=== PATIENT | female | born 1940 | race Caucasian/White ===

== ENCOUNTER → 2017-12-15 | Outpatient (CLI) | payer MEDICARE ==
[~2017-12-15] MED LIST: ASPI81TA40 PO; ATOR40TA71 PO; CARV12.511 PO; GLIP10TA9 PO; LOSA50TA37 PO; METF10004 PO; MONT10TA24 PO; OMEPRAZOLE PO; OXYB5TAB10 PO; RIVA20TA PO
== END | disposition home or self-care (01) ==
LOC: OIH 16:29
PROVIDERS: ATTEND Internal Medicine
DX: M25.552 Pain in left hip (principal)
CPT/HCPCS: 73502

== ENCOUNTER 2018-01-23 08:23 | Day surgery (SDC) | payer MEDICARE ==
[2018-01-21 13:57] VITALS: BP 118/57
[2018-01-21 14:06] LABS: BASOPHILS % (AUTO) 0.6 % (0.0-5.0); HEMATOCRIT 36.7 % (36-48); LYMPHOCYTES % (AUTO) 38.2 % (21.0-51.0); MEAN CORPUSCULAR HEMOGLOBIN 33.3 pg (27.0-33.0); MEAN CORPUSCULAR HGB CONC 35.4 g/dL (32.0-36.0); MONOCYTES % (AUTO) 7.8 % (3.0-13.0); NEUTROPHILS % (AUTO) 52.4 % (40.0-77.0); PLATELET COUNT (AUTO) 285 K/uL (130-400); RED CELL DISTRIBUTION WIDTH 12.8 % (11.0-15.5); WHITE BLOOD COUNT (AUTO) 6.5 K/uL (4.8-10.8)
[2018-01-21 14:11] LABS: APPEARANCE,URINE CLEAR (CLEAR); BILIRUBIN,URINE NEGATIVE (NEGATIVE); COLOR,URINE YELLOW (YELLOW); GLUCOSE, URINE (UA) NEGATIVE (NEGATIVE); KETONES,URINE 5 mg/dL (NEGATIVE); LEUKOCYTE ESTERASE ,URINE TRACE (NEGATIVE); NITRATE,URINE NEGATIVE (NEGATIVE); OCCULT BLOOD,URINE NEGATIVE (NEGATIVE); PH,URINE 5.5 (5.0-8.0); PROTEIN,URINE NEGATIVE (NEGATIVE); UROBILINOGEN,URINE 0.2 mg/dL (0.2-1.0)
[2018-01-21 14:11] LABS: CREATININE 0.8 mg/dL (0.5-1.5); POTASSIUM 4.5 mmol/L (3.5-5.1)
[2018-01-21 14:22] LABS: INR 1.21 (0.85-1.15); PARTIAL THROMBOPLASTIN TIME 28.6 SEC (26.3-35.5); PROTHROMBIN TIME 12.7 SEC (9.6-11.6)
[2018-01-21 14:43] LABS: BACTERIA,URINE Rare /HPF (None Seen); MUCUS,URINE Rare LPF (None Seen); SQUAMOUS EPITHELIAL CELL,UR Rare /HPF (0-2); WBC,URINE 0-1 /HPF (0-1)
[2018-01-23] VITALS (9 sets, daily range): BP systolic 117–157; BP diastolic 49–80
[~2018-01-23] VITALS: Ht 165.1 cm; Wt 69.5 kg
[~2018-01-23 08:23] MED LIST changes: +SODIUM CHLORIDE 0.9% 500ML 500 ML IV SCH
[2018-01-23] MEDS ORDERED: SODIUM CHLORIDE 0.9% 1000ML 1,000 ML IV ONE (09:02)
[2018-01-23] MEDS ORDERED: BIVALIRUDIN 250 MG/VIAL IV ONE (09:49)
[2018-01-23] MEDS ORDERED: LIDOCAINE HCL 1% 20 ML VIAL ONE (09:49)
[2018-01-23] MEDS ORDERED: IOPAMIDOL-370 100 ML VIAL IV ONE (09:50)
[2018-01-23] MEDS ORDERED: ISOVUE-370 50ML VIAL IV ONE ×2 (09:50→10:36)
[2018-01-23] MEDS ORDERED: HEPARIN SODIUM 1000UNIT/ML 10ML VIAL ONE (09:50)
[2018-01-23] MEDS ORDERED: NITROGLYCERIN 5 MG/ML 10 ML VIAL IV ONE (09:50)
[2018-01-23] MEDS ORDERED: SODIUM CHLORIDE 0.9% 1000ML 1,000 ML IV SCH (10:54)
[2018-01-23] MEDS ORDERED: DEXTROSE 50%-WATER 50 ML DISP.SYRIN IV PRN (11:00)
[2018-01-23] MEDS ORDERED: GLUCAGON 1MG KIT 1 MG ML IM PRN (11:00)
== END 2018-01-23 15:00 | disposition home or self-care (01) ==
LOC: DAH 08:23
PROVIDERS: ATTEND Internal Medicine Cardiovascular Disease
DX: I25.119 Atherosclerotic heart disease of native coronary artery with unspecified angina pectoris (principal); I48.0 Paroxysmal atrial fibrillation; I10 Essential (primary) hypertension; G47.30 Sleep apnea, unspecified; K21.9 Gastro-esophageal reflux disease without esophagitis; E78.4 Other hyperlipidemia; E11.9 Type 2 diabetes mellitus without complications; Z79.82 Long term (current) use of aspirin; Z79.899 Other long term (current) drug therapy; E78.5 Hyperlipidemia, unspecified; Z79.84 Long term (current) use of oral hypoglycemic drugs; Z88.0 Allergy status to penicillin; Z88.8 Allergy status to other drugs, medicaments and biological substances; Z95.1 Presence of aortocoronary bypass graft
CPT/HCPCS: 36415; 71045; 80048; 81001; 85025; 85610; 85730; 93005; 93459; A4606; C1760; C1769; C1894; J1644; J3490; J7030; Q9967 ×2; J0583

== ENCOUNTER 2021-11-16 08:58 | Day surgery (SDC) | payer MEDICARE ==
[2021-11-14 13:59] LABS: BASOPHILS % (AUTO) 0.9 % (0.0-5.0); EOSINOPHILS % (AUTO) 1.8 % (0.0-8.0); HEMATOCRIT 40.5 % (36-48); LYMPHOCYTES % (AUTO) 28.8 % (21.0-51.0); MEAN CORPUSCULAR HEMOGLOBIN 31.7 pg (27.0-33.0); MEAN CORPUSCULAR HGB CONC 32.6 g/dL (32.0-36.0); MEAN CORPUSCULAR VOLUME 97.1 fL (79-99); NEUTROPHILS % (AUTO) 60.3 % (40.0-77.0); PLATELET COUNT (AUTO) 208 K/uL (130-400); RED BLOOD CELL COUNT(AUTO) 4.17 MIL/uL (4.00-5.50); RED CELL DISTRIBUTION WIDTH 14.5 % (11.0-15.5); WHITE BLOOD COUNT (AUTO) 5.6 K/uL (4.8-10.8)
[2021-11-14 14:00] LABS: APPEARANCE,URINE Clear (CLEAR); BILIRUBIN,URINE Negative (NEGATIVE); COLOR,URINE Yellow (YELLOW); GLUCOSE, URINE (UA) Negative (NEGATIVE); KETONES,URINE Negative (NEGATIVE); LEUKOCYTE ESTERASE ,URINE Moderate (NEGATIVE); NITRATE,URINE Negative (NEGATIVE); OCCULT BLOOD,URINE Negative (NEGATIVE); PROTEIN,URINE Negative (NEGATIVE); UROBILINOGEN,URINE 0.2 mg/dL (0.2-1.0)
[2021-11-14 14:06] LABS: CREATININE 1.5 mg/dL (0.5-1.5); POTASSIUM 4.4 mmol/L (3.5-5.1)
[2021-11-14 14:10] LABS: INR 1.45 (0.85-1.15); PROTHROMBIN TIME 15.3 SEC (9.6-11.6)
[2021-11-14 14:11] LABS: PARTIAL THROMBOPLASTIN TIME 35.9 SEC (26.3-35.5)
[2021-11-14 14:13] LABS: RBC,URINE 0-1 /HPF (0-1)
[2021-11-14 14:14] LABS: BACTERIA,URINE Few /HPF (None Seen)
[2021-11-15 13:41] VITALS: BP 133/64
[2021-11-16] VITALS (10 sets, daily range): BP systolic 92–116; BP diastolic 44–66
[~2021-11-16] VITALS: Ht 175.3 cm; Wt 82.7 kg
[~2021-11-16 08:58] MED LIST changes: +AMIO200T68 PO; +AMLO2.5T4 PO; -ASPI81TA40 PO; -ATOR40TA71 PO; -CARV12.511 PO; +CARV25TA PO; +FURO20TA4 PO; +LINA5TAB PO; -LOSA50TA37 PO; +LOSA50TA64 PO; -METF10004 PO; -MONT10TA24 PO; -OMEPRAZOLE PO; -OXYB5TAB10 PO; +PIOG45TA64 PO; +ROSU20TA31 PO; -SODIUM CHLORIDE 0.9% 500ML 500 ML IV SCH
[2021-11-16] MEDS ORDERED: 0.9%NACL 1000ML 1,000 ML IV ONE (10:38)
[2021-11-16] MEDS ORDERED: DEXTROSE 50%-WATER 50 ML DISP.SYRIN IV ONE (15:08)
[2021-11-16] MEDS ORDERED: NITROGLYCERIN 50MG VIAL ONE (15:16)
[2021-11-16] MEDS ORDERED: SODIUM BICARB 50MEQ 50ML VIAL 50 ML ONE (15:16)
[2021-11-16] MEDS ORDERED: IOHEXOL 350 MG/ML 100ML INFUS..BTL IV ONE (15:16)
[2021-11-16] MEDS ORDERED: HEPARIN 10,000 UNIT/10ML (1,000 UNIT/ML) VIAL ONE (15:16)
[2021-11-16] MEDS ORDERED: LIDOCAINE HCL 400MG/20ML VIAL ONE (15:17)
[2021-11-16] MEDS ORDERED: IOHEXOL-350 50ML VIAL IV ONE (15:17)
[2021-11-16] MEDS ORDERED: MEPERIDINE-PF 25 MG/ML SYG ONE ×3 (15:17→16:54)
[2021-11-16] MEDS ORDERED: MIDAZOLAM HCL 1 MG/ML 2ML VIAL ONE ×3 (15:17→16:54)
[2021-11-16] MEDS ORDERED: IOHEXOL-350 75 ML VIAL IV ONE (15:51)
[2021-11-16] MEDS ORDERED: 0.9%NACL 1000ML 1,000 ML IV SCH (16:30)
== END 2021-11-16 20:00 | disposition home or self-care (01) ==
LOC: DAH 08:58
PROVIDERS: ATTEND Internal Medicine Cardiovascular Disease
DX: I25.729 Atherosclerosis of autologous artery coronary artery bypass graft(s) with unspecified angina pectoris (principal); I25.119 Atherosclerotic heart disease of native coronary artery with unspecified angina pectoris; I48.92 Unspecified atrial flutter; I48.91 Unspecified atrial fibrillation; I11.0 Hypertensive heart disease with heart failure; I50.32 Chronic diastolic (congestive) heart failure; I25.2 Old myocardial infarction; E11.9 Type 2 diabetes mellitus without complications; E66.3 Overweight; G47.30 Sleep apnea, unspecified; K21.9 Gastro-esophageal reflux disease without esophagitis; E78.5 Hyperlipidemia, unspecified; Z98.890 Other specified postprocedural states; Z82.3 Family history of stroke; Z82.49 Family history of ischemic heart disease and other diseases of the circulatory system; Z88.8 Allergy status to other drugs, medicaments and biological substances; Z88.6 Allergy status to analgesic agent; Z88.0 Allergy status to penicillin; Z79.01 Long term (current) use of anticoagulants; Z68.32 Body mass index [BMI] 32.0-32.9, adult; Z79.899 Other long term (current) drug therapy
CPT/HCPCS: 36415; 71045; 80048; 81001; 82948 ×3; 85025; 85610; 85730; 87088; 93005; 93459; A4215; A4216; A4221; A4222; A4223 ×3; A4606; A4663; C1760; C1894; J1644; J2175 ×3; J2250 ×3; J3490 ×3; J7030; J7070; Q9965; Q9967 ×2; 96360; 96361; 96374; 99152; 99153; 99156; 99157

== ENCOUNTER → 2021-12-12 | Outpatient (CLI) | payer MEDICARE | END | disposition home or self-care (01) | LOC: RAH 10:00 | PROVIDERS: ATTEND Internal Medicine Cardiovascular Disease | DX: R06.00 Dyspnea, unspecified (principal); Z98.890 Other specified postprocedural states | CPT/HCPCS: 71250 ==

== ENCOUNTER 2021-12-24 06:46 | Day surgery (SDC) | payer MEDICARE ==
[2021-12-20 08:57] LABS: BASOPHILS % (AUTO) 0.7 % (0.0-5.0); EOSINOPHILS % (AUTO) 2.2 % (0.0-8.0); HEMATOCRIT 38.3 % (36-48); LYMPHOCYTES % (AUTO) 24.9 % (21.0-51.0); MEAN CORPUSCULAR HEMOGLOBIN 31.8 pg (27.0-33.0); MEAN CORPUSCULAR HGB CONC 31.6 g/dL (32.0-36.0); MEAN CORPUSCULAR VOLUME 100.5 fL (79-99); MONOCYTES % (AUTO) 6.2 % (3.0-13.0); NEUTROPHILS % (AUTO) 65.8 % (40.0-77.0); PLATELET COUNT (AUTO) 184 K/uL (130-400); RED BLOOD CELL COUNT(AUTO) 3.81 MIL/uL (4.00-5.50); RED CELL DISTRIBUTION WIDTH 14.2 % (11.0-15.5); WHITE BLOOD COUNT (AUTO) 5.8 K/uL (4.8-10.8)
[2021-12-20 09:04] LABS: POTASSIUM 4.1 mmol/L (3.5-5.1)
[2021-12-20 09:07] LABS: INR 1.2 (0.85-1.15); PROTHROMBIN TIME 12.9 SEC (9.6-11.6)
[2021-12-20 09:08] LABS: PARTIAL THROMBOPLASTIN TIME 29.4 SEC (26.3-35.5)
[2021-12-21 09:14] VITALS: BP 117/56
[2021-12-24] VITALS (10 sets, daily range): BP systolic 96–115; BP diastolic 42–55
[~2021-12-24] VITALS: Ht 160 cm; Wt 85.3 kg
[~2021-12-24 06:46] MED LIST changes: +0.9%NACL 1000ML 1,000 ML IV SCH
[2021-12-24] MEDS ORDERED: 0.9%NACL 1000ML 1,000 ML IV ONE (07:11)
[2021-12-24] MEDS ORDERED: LIDOCAINE HCL 1% MDV 50ML VIAL ONE (07:27)
[2021-12-24] MEDS ORDERED: FENTANYL CITRATE PF 50 MCG/1 ML 2ML VIAL ONE (08:24)
[2021-12-24] MEDS ORDERED: MIDAZOLAM HCL 1 MG/ML 2ML VIAL ONE ×3 (08:24→09:45)
[2021-12-24] MEDS ORDERED: MEPERIDINE-PF 25 MG/ML SYG ONE ×3 (08:56→09:45)
[2021-12-24] MEDS ORDERED: HEPARIN 1,000 UNIT VIAL ONE (09:05)
== END 2021-12-24 14:40 | disposition home or self-care (01) ==
LOC: DAH 06:46
PROVIDERS: ATTEND Internal Medicine Cardiovascular Disease
DX: I48.3 Typical atrial flutter (principal); I25.10 Atherosclerotic heart disease of native coronary artery without angina pectoris; I10 Essential (primary) hypertension; E78.5 Hyperlipidemia, unspecified; E11.9 Type 2 diabetes mellitus without complications; I25.2 Old myocardial infarction; G47.30 Sleep apnea, unspecified; K21.9 Gastro-esophageal reflux disease without esophagitis; Z79.01 Long term (current) use of anticoagulants; Z79.899 Other long term (current) drug therapy; Z88.6 Allergy status to analgesic agent; Z88.1 Allergy status to other antibiotic agents; Z88.0 Allergy status to penicillin; Z95.1 Presence of aortocoronary bypass graft; Z82.49 Family history of ischemic heart disease and other diseases of the circulatory system; Z83.3 Family history of diabetes mellitus; Z98.890 Other specified postprocedural states; Z79.82 Long term (current) use of aspirin
CPT/HCPCS: 36415; 80048; 82948 ×2; 85025; 85610; 85730; 93005 ×2; 93653; 93662; A4215; A4216; A4221; A4222; A4223 ×3; A4606; A4649 ×2; A4663; C1730; C1732; C1894 ×3; J1644 ×2; J2175 ×3; J2250 ×3; J3010; J3490; J7030; 99156; 99157

== ENCOUNTER 2022-11-29 11:33 | Emergency (ER) | payer MEDICARE ==
[~2022-11-29] VITALS: Ht 160 cm; Wt 81.6 kg
[~2022-11-29 11:33] MED LIST changes: -0.9%NACL 1000ML 1,000 ML IV SCH
[2022-11-29 12:24] LABS: BASOPHILS % (AUTO) 0.5 % (0.0-5.0); EOSINOPHILS % (AUTO) 1.2 % (0.0-8.0); HEMATOCRIT 40.7 % (36-48); LYMPHOCYTES % (AUTO) 30.1 % (21.0-51.0); MEAN CORPUSCULAR HEMOGLOBIN 30.8 pg (27.0-33.0); MEAN CORPUSCULAR HGB CONC 33.9 g/dL (32.0-36.0); MEAN CORPUSCULAR VOLUME 90.8 fL (79-99); MONOCYTES % (AUTO) 6.2 % (3.0-13.0); NEUTROPHILS % (AUTO) 61.6 % (40.0-77.0); PLATELET COUNT (AUTO) 221 K/uL (130-400); RED BLOOD CELL COUNT(AUTO) 4.48 MIL/uL (4.00-5.50); RED CELL DISTRIBUTION WIDTH 12.2 % (11.0-15.5); WHITE BLOOD COUNT (AUTO) 7.8 K/uL (4.8-10.8)
[2022-11-29 12:40] LABS: CREATININE 1.2 mg/dL (0.5-1.5); POTASSIUM 4.1 mmol/L (3.5-5.1)
[2022-11-29 12:44] LABS: ALBUMIN 3.9 g/dL (3.5-5.0); TOTAL PROTEIN, SERUM 7.8 g/dL (6.0-8.3)
[2022-11-29 13:38] LABS: APPEARANCE,URINE CLEAR (CLEAR); BILIRUBIN,URINE NEGATIVE (NEGATIVE); COLOR,URINE COLORLESS (YELLOW); GLUCOSE, URINE (UA) >=1000 mg/dL (NEGATIVE); KETONES,URINE NEGATIVE (NEGATIVE); LEUKOCYTE ESTERASE ,URINE 250 Leu/uL (NEGATIVE); NITRATE,URINE 1+ (NEGATIVE); OCCULT BLOOD,URINE NEGATIVE (NEGATIVE); PROTEIN,URINE NEGATIVE (NEGATIVE); UROBILINOGEN,URINE 0.2 mg/dL (0.2-1.0)
[2022-11-29 14:22] LABS: MUCUS,URINE RARE LPF (None Seen); SQUAMOUS EPITHELIAL CELL,UR MOD /HPF (0-2); WBC,URINE 26-50 /HPF (0-1)
[2022-11-29] MEDS ORDERED: HYDRALAZINE 20MG/ML VIAL ONE (14:22)
[2022-11-29] MEDS ORDERED: HYDRALAZINE 20MG/ML VIAL IV ONE ×2 (14:30→16:00)
[2022-11-29] MEDS ORDERED: IOHEXOL-350 50ML VIAL IV ONE (17:13)
[2022-11-29] MEDS ORDERED: LEVO750T68 PO (19:55)
[2022-11-29 20:03] VITALS: BP 127/55
== END 2022-11-29 20:04 | disposition home or self-care (01) ==
LOC: EDH 11:33
DX: R07.9 Chest pain, unspecified (principal); N39.0 Urinary tract infection, site not specified; I10 Essential (primary) hypertension; E78.00 Pure hypercholesterolemia, unspecified; E11.9 Type 2 diabetes mellitus without complications; Z88.0 Allergy status to penicillin; Z88.2 Allergy status to sulfonamides; Z88.8 Allergy status to other drugs, medicaments and biological substances; Z79.899 Other long term (current) drug therapy
CPT/HCPCS: 99285; 96374; 71270; 71045; 83735; 84484 ×3; 80053; 83880; 85025; 85378; 87077; 87088; 87186; 81001; 36415; 93005; J0360; Q9967

== ENCOUNTER → 2025-01-31 | Outpatient (CLI) | payer MEDICARE ==
[~2025-01-31] MED LIST changes: +GLIP10TA16 PO; -GLIP10TA9 PO; +LEVO750T68 PO; -ROSU20TA31 PO; +ROSU20TA98 PO
--- NOTE | 2025-01-31 09:40 | HMCIMG ---
CT ABDOMEN/PELVIS W/O CONTRAST HISTORY: Hiatal hernia COMPARISON: None TECHNIQUE: Multiple sequential axial images of the abdomen and pelvis were obtained from the dome of the diaphragm through symphysis pubis. Patient was not given contrast through intravenous route. Oral contrast was not given. FINDINGS: No pleural effusion is seen bilaterally. There is no evidence of parenchymal disease or pulmonary nodule of the visualized lower lungs. Degenerative changes of the thoracolumbar spine are present. The heart is not enlarged. Liver measures 14 cm. There is small ventral hernia with bowel content. There is diverticulosis. The liver, spleen, adrenal glands and pancreas are unremarkable. There is no evidence of hydronephrosis bilaterally. No evidence of renal stone is seen. Fecal material is seen in the colon. There are normal size retroperitoneal and mesenteric lymph nodes. No ascites is seen. Atherosclerotic changes are present. Pelvic sidewalls are symmetric bilaterally. Bladder is well distended without wall thickening. IMPRESSION: 1. Diverticulosis. Ventral hernia with bowel content. No definite bowel obstruction is seen. CT was performed with one or more following dose reduction techniques: automated exposure control, adjustment of the mA and kv according to patient's size, or use of a iterative reconstruction technique.
== END | disposition home or self-care (01) ==
LOC: RAH 07:56
PROVIDERS: ATTEND Internal Medicine
DX: K43.9 Ventral hernia without obstruction or gangrene (principal); K44.9 Diaphragmatic hernia without obstruction or gangrene; K57.90 Diverticulosis of intestine, part unspecified, without perforation or abscess without bleeding; N32.89 Other specified disorders of bladder; M47.815 Spondylosis without myelopathy or radiculopathy, thoracolumbar region; I70.90 Unspecified atherosclerosis; R19.5 Other fecal abnormalities; R19.00 Intra-abdominal and pelvic swelling, mass and lump, unspecified site; R10.9 Unspecified abdominal pain
CPT/HCPCS: 74176